=== PATIENT | female | born 1990 | race Caucasian/White ===

== ENCOUNTER 2022-02-05 00:23 | Day surgery (SDC) | payer BC, SELFPAY ==
[2022-01-30 09:52] VITALS: BMI 30.4
--- NOTE | 2022-01-30 10:02 | PC.NURSE ---
Report to the Outpatient Waiting Room, entrance under the green pavilion located off [facility], at time 0700 on date 02/05/22. OR Time: 0900. Time changes happen often and if your time is changed the preop area will call you the afternoon before. - You and your visitor will be asked to self-screen and do not enter if you have any COVID symptoms. - Only one visitor and NO children visitors are allowed at this time. - The patient visitor is requested to leave or wait in car when not with patient due to restrictions. - A mask is required within the hospital. Patients may have clear liquids (water, carbonated beverages, clear teas, apple juice) until 3 hours prior to surgery with a maximum of 20 ounces. - No food from midnight until time of surgery Take the following medications with a SIP of water the morning of surgery: BUPROPION Medications to discontinue per physician: N/A Date to take last dose: N/A Please no make-up, nail dutch, hairspray, perfume, deodorant, or body powder the day of surgery. No jewelry (including any body piercings) or valuables the day of surgery, leave them at home. Please take a shower or bath the night before, or the morning of, surgery with an antibacterial soap. Wear comfortable, loose fitting clothing. - Jewelry must be removed prior to entering the operating room. Rings and piercings that are not removed may be cut off. - The hospital will not accept responsibility for valuables. - Please leave all valuables, including medications, at home the day of surgery. If you are going home after surgery, a licensed front end loader driver must drive you home. - NO public transportation without another adult. - We recommend that an adult stay with you for 24 hours following discharge. - We also recommend that you do not drive, make important decision, drink alcoholic beverages, or take any drugs that were not prescribed by your health care provider for at least 24 hours after your discharge time. Follow any additional instructions given to you from your surgeon. If you or anyone in your household have experienced Covid symptoms in the past week, please notify your surgeon or the nurse liaison at the phone number below for possible testing. Telephone instructions given to PT - NORY SWARTZ and asked if any additional questions and then verbalized understanding. Patient advised to call surgeon office or pre surgery nurse liaison [phone] if any additional questions.
--- NOTE | 2022-02-04 19:49 | P.HP_ITS ---
H&P: HPI History of Present Illness Date/Time: 02/04/22 19:49 Chief Complaint: sterilization requested Narrative: Verónica is a 31yo G0, who presents for surgical sterilization. She is on continuous OCPs to help with cycles but to also prevent ; 100% sure that she does not desire children. She is sexually active; her partner also does not want children. Review of Systems Review of Systems: All systems reviewed & are unremarkable except as noted in HPI and below PMFSH Past Medical History Medical History Depression Genital warts Surgical History Surgical History H/O colposcopy with cervical biopsy Lgsil +hpv Family History Family History Other Breast cancer Lymphoma Social History Social History Smoking packs per day: 1 Smoking cigarettes per day: 20.0 Years smoked: 5 Smoking pack-years: 5.00 Smoking status: Former smoker Tobacco type: cigarettes and e-cigarettes/vaping Smoking end date: 05/20/10 Additional smoking assessment comments: QUIT CIGARETTES, NOW VAPING WITH NICOTINE Alcohol intake: current Alcohol use details: RARE Substance use: current Substance use type: marijuana Living arrangements: alone 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 Gender identity (if verbalized by the patient): Female Sexual Orientation (if Verbalized by the Patient): Straight or Heterosexual Spiritual care concerns: No Meds Home Medications and Allergies Home Medications Medication Instructions Recorded Confirmed Type L norgest/E estradiol-E estrad 1 tablet PO DAILY 11/06/21 01/30/22 History 0.15 mg-30 mcg (84)/10 mcg(7) tabs,3mos bupropion HCl 150 mg 24 hr tablet, 150 mg PO QAM 11/06/21 01/30/22 History extended release trazodone 50 mg tablet 50 mg PO HS PRN Insomnia 01/30/22 01/30/22 History Allergies Allergy/AdvReac Type Severity Reaction Status Date / Time No Known Allergies Allergy Unverified 01/30/22 09:51 Exam Const: General: cooperative, comfortable and no acute distress Nutritional Appearance: obese Resp: Effort & Inspection: normal respiratory effort Cardio: Rate: regular rate GI: Inspection: normal to inspection GI Palp: No abdominal tenderness and Yes Soft to palpation Skin: General skin exam: normal color Neuro: General: patient oriented x3 Extrem: General: normal to inspection Psych: Appearance: grossly normal Affect: normal affect Attitude: cooperative Assessment and Plan Assessment and plan (1) Encounter for sterilization: Code(s): Z30.2 - Encounter for sterilization Status: Acute Plan - Discussed all BC options - Pt desire to proceed with sterilization via laparoscopic bilateral salpingectomy - She understands the risks and benefits - She will also want to continue continuous OCPs to help with cycles and further decrease her risk of ovarian and endometrial cancer
[2022-02-05] VITALS (8 sets, daily range): BP systolic 111–138; BP diastolic 63–85; PULSE 63–95; RESP 14–20; TEMP 36.8–37.4; O2SAT 99–100
--- NOTE | 2022-02-05 07:01 | WPDHPUPDATE1 ---
History and Physical Update Update Date/Time: 02/05/22 07:01 History and Physical has been reviewed, including an updated exam of the patient. There are NO changes in the patient's condition. Risks, benefits, and alternatives have been discussed and questions answered. Patient agrees to proceed with procedure.
[2022-02-05] MEDS: ACETAMINOPHEN 500 MG TABLET 1000 MG PO (07:13)
[2022-02-05] MEDS: LACTATED RINGERS 1,000 ML 30 ML IV CONT ×2 (07:44→09:26)
[2022-02-05] MEDS: KETOROLAC 15 MG/ML VIAL (*BKC) IV PUSH (07:46)
--- NOTE | 2022-02-05 08:00 | WPDANESEPPF ---
Anes - Initial Pre Proc Eval Procedure: Operation Date: 02/05/22 09:00 Proposed Procedures p Bilateral Laparoscopic Salpingectomy - Radha Rowe MD Date/Time: 02/05/22 08:00 Surgeon: Radha Rowe MD Pre Op Diagnosis: desires sterilization Patient Data Age: 31 Gender: F Height: 1.64 m Weight: 80 kg Last Vital Signs Temp 37.4 C 02/05/22 07:27 Pulse 91 02/05/22 07:27 Resp 16 02/05/22 07:27 BP 131/76 02/05/22 07:27 Pulse Ox 100 02/05/22 07:27 O2 Del Method Room Air 02/05/22 07:27 Allergies Allergy/AdvReac Type Severity Reaction Status Date / Time No Known Allergies Allergy Unverified 02/05/22 07:07 Home Medications Medication Instructions Recorded Confirmed Type L norgest/E estradiol-E estrad 1 tablet PO DAILY 11/06/21 02/05/22 History 0.15 mg-30 mcg (84)/10 mcg(7) tabs,3mos bupropion HCl 150 mg 24 hr tablet, 150 mg PO QAM 11/06/21 02/05/22 History extended release trazodone 50 mg tablet 50 mg PO HS PRN Insomnia 01/30/22 02/05/22 History Patient hx anesthesia problems: none Family hx anesthesia problems: none Results Review: All pre-operative results and documents have been reviewed as part of the pre-operative evaluation. [facility] Past Medical History Medical History Depression Genital warts Surgical History Surgical History H/O colposcopy with cervical biopsy Lgsil +hpv Family History Family History Other Breast cancer Lymphoma Social History Social History Smoking packs per day: 1 Smoking cigarettes per day: 20.0 Years smoked: 5 Smoking pack-years: 5.00 Smoking status: Former smoker Tobacco type: cigarettes and e-cigarettes/vaping Smoking end date: 05/20/10 Additional smoking assessment comments: QUIT CIGARETTES, NOW VAPING WITH NICOTINE Alcohol intake: current Alcohol use details: RARE Substance use: current Substance use type: marijuana Living arrangements: alone 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 Gender identity (if verbalized by the patient): Female Sexual Orientation (if Verbalized by the Patient): Straight or Heterosexual Spiritual care concerns: No Anes - Eval Final PreProcedure Day of Procedure 02/05/22 08:00 Patient weight: overweight Heart: regular rate and rhythm Lungs: clear to auscultation Airway: Mallampati scale class II Neurological: alert and oriented Last oral intake: >/= 8 hours ASA classification: II Emergent: no Anesthetic plan: proceed Anesthesia type and monitoring: general ETT and standard monitoring Results Review: All pre-operative results and documents have been reviewed as part of the pre-operative evaluation. Informed Consent: The patient's anesthetic plan and its attendant risks and benefits were discussed with the patient/family/POA. Questions were solicited and answers provided to the satisfaction of the patient/family/POA.
[2022-02-05] MEDS: BUPIVACAINE/EPINEPHRINE 0.25% 50 ML VIAL INFILTRATE (09:18)
--- NOTE | 2022-02-05 09:21 | P.OP_ITS ---
Procedure Note - Detailed Date of Procedure 02/05/22 Pre-op Diagnosis desires sterilization Post-op Diagnosis Same Procedure Performed Laparoscopic bilateral salpingectomy Surgeon Radha Rowe MD Rn Hemodialysis Charge Leo Anesthesia General Findings Uterus 8am, normal cervix. Normal uterus, bilateral fallopian tubes and ovaries noted. Tubes removed w/o issues. Good hemostasis at end of case. Description of Procedure Verónica was taken to the operating room where she was placed under general endotracheal anesthesia without complications. She was then prepped and draped in the usual sterile fashion in the dorsal lithotomy position with her legs in low Trevor stirrups and her arms tucked at her side with a strap over her chest. A time-out was performed and no preoperative antibiotics were indicated. My attention was turned down below where her bladder was drained via straight catheterization. A bivalve speculum was then placed within the vagina where the cervix was easily identified. The anterior lip of the cervix was grasped with a single-tooth tenaculum, the uterus was sounded, the cervix was serially dilated, and a diagnostic uterine manipulator was placed without complications. My gloves were changed and my attention was turned to her abdomen. An umbilical incision was made, and a 5 mm trocar was placed under direct visualization without complications. Once intra-abdominal placement was confirmed, the abdomen was insufflated with carbon dioxide gas. She was then placed in Trendelenburg and two additional 5 mm ports were placed in the left and right lower quadrants under direct visualization without complications. The above findings were noted. The left fallopian tube was then elevated and the mesosalpinx was serially clamped, coagulated, and transected using the LigaSure device until the proximal end of the fallopian tube was reached. The proximal end of the fallopian tube was then cross clamped, coagulated and transected. The tube was then removed from the abdomen. The same procedure was then perf ormed on the right side without any complications. Good hemostasis was noted. All instruments were removed from the abdomen. The insufflation was released and the trocars were removed. The 3 laparoscopic incision sites were reapproximated using 4-0 Monocryl and covered with Dermabond. The incisions were then infiltrated using 0.25% Marcaine. The uterine manipulator was removed. Sponge, lap, instrument, and needle counts were correct at the end of the procedure. Patient was awoken from general anesthesia and taken to recovery with plans of same-day discharge home. Estimated Blood Loss 5 IV Fluids 1,000 Urine Output 25 Pathology Yes (fallopian tubes sent separately ) Complications No immediate complications Condition Stable Disposition Same day [facility] Billing Surgery - Charge Forward: Surgery Billing
[2022-02-05] MEDS: fentaNYL CITRATE INJ (*CRX) 100 MCG/2 ML VIAL 25 MCG IV PUSH ×2 (09:58→10:13)
== END 2022-02-05 11:25 | disposition home or self-care (01) ==
PROVIDERS: Visit Provider Obstetrics & Gynecology
PROC: (CPT 49320; principal; 2022-02-05 09:00)
DX: Z30.2 Encounter for sterilization (principal); F32.A Depression, unspecified; A63.0 Anogenital (venereal) warts; F17.290 Nicotine dependence, other tobacco product, uncomplicated
CPT/HCPCS: 58661; 88302; A9270; J1100; J1170; J1885; J2250; J2405; J2704; J2710; J3010; J7120

== ENCOUNTER 2022-04-25 17:03 | Emergency (ER) | payer BC, SELFPAY ==
--- NOTE | ~2022-04-25 | XR_ITS ---
XR foot LT min 3V DATE: 04/25/2022 17:30 INDICATION: Dorsal first toe pain for 6 days TECHNIQUE: 4 views COMPARISON: None FINDINGS: No fracture or dislocation, periosteal reaction or bone destruction. No erosive changes. Debbie int spaces appear well preserved. IMPRESSION: Negative Reviewed, dictated and finalized at location B. ASSOCIATE IMPRESSION: Negative
--- NOTE | 2022-04-25 17:05 | ED.EXTPRO ---
HPI - Extremity Problem General Chief complaint: Extremity Injury, Lower Stated complaint: Left Foot Pain Time Seen by Provider: 04/25/22 17:05 Source: patient Mode of arrival: ambulatory Limitations: no limitations History of Present Illness HPI Narrative: Verónica is a 32-year-old female patient presenting to the clinic today with complaints of left great toe/ foot pain since last . She reports no known injury or trauma. 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 She is wondering if she may have count in her right great toe Related Data Home Medications Medication Instructions Recorded Confirmed L norgest/E estradiol-E estrad 1 tablet DAILY 04/25/22 04/25/22 0.15 mg-30 mcg (84)/10 mcg(7) tabs,3mos bupropion HCl 150 mg 24 hr tablet, 150 mg PO DAILY 04/25/22 04/25/22 extended release trazodone 50 mg tablet 50 mg HS 04/25/22 04/25/22 Allergies Allergy/AdvReac Type Severity Reaction Status Date / Time No Known Allergies Allergy Verified 04/25/22 17:14 Review of Systems Review of Systems: Pertinent positives per HPI. Patient denies any fever, chills, rash, headache, visual changes, dizziness, cough, runny nose, sore throat, shortness of breath, chest pain, palpitations, nausea, vomiting, diarrhea, constipation, abdominal pain, or any urinary issues. [facility] Past Medical History Medical History Depression Genital warts Surgical History Surgical History H/O colposcopy with cervical biopsy Lgsil +hpv Family History Family History Other Breast cancer Lymphoma Social History Social History Smoking packs per day: 1 Smoking cigarettes per day: 20.0 Years smoked: 5 Smoking pack-years: 5.00 Smoking status: Former smoker Tobacco type: cigarettes and e-cigarettes/vaping Smoking end date: 05/20/10 Additional smoking assessment comments: QUIT CIGARETTES, NOW VAPING WITH NICOTINE Alcohol intake: current Alcohol use details: RARE Substance use: current Substance use type: marijuana 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 There is no relevant family history pertinent to the patient complaint. Exam Narrative: General: Well-developed, well nourished, in no apparent distress Head: Normocephalic, atraumatic. Cardio: Regular rate and rhythm, s1 and s2 normal, no murmur appreciated. Resp: Clear to auscultation bilaterally, no rhonchi, rales, wheezing or rubs. Musculoskeletal: No deformity, mild tender to palpation over the base of the right great toe and over the PIP joint, grossly normal range of motion, muscle strength strong and equal, peripheral pulse strong, no edema, no cyanosis, normal gait and station Course Course Emergency Course: Portions of this record may have been created with voice recognition software. Level of Care: Express Care Visit Vital Signs Vital signs: Vital Signs Temperature 37.7 C H 04/25/22 17:10 Pulse Rate 73 04/25/22 17:10 Respiratory Rate 16 04/25/22 17:10 Blood Pressure 154/107 H 04/25/22 17:10 Pulse Oximetry 99 04/25/22 17:10 Oxygen Delivery Room Air 04/25/22 17:10 Temperature 37.7 C H 04/25/22 17:10 Pulse Rate 73 04/25/22 17:10 Respiratory Rate 16 04/25/22 17:10 Blood Pressure 154/107 H 04/25/22 17:10 Pulse Oximetry 99 04/25/22 17:10 Oxygen Delivery Room Air 04/25/22 17:10 Vital signs reviewed MDM - Extremity (Nontraumatic) MDM [facility]
[2022-04-25 17:10] VITALS: BP 154/107; PULSE 73; RESP 16; TEMP 37.7; O2SAT 99
== END 2022-04-25 17:51 | disposition home or self-care (01) ==
PROVIDERS: Emergency Provider Nurse Practitioner Family
DX: M79.675 Pain in left toe(s) (principal); F17.290 Nicotine dependence, other tobacco product, uncomplicated; F32.A Depression, unspecified
CPT/HCPCS: 73630; 99213; G0463